=== PATIENT | female | born 1975 | race Caucasian/White ===

== ENCOUNTER 2017-03-22 11:17 | Emergency (ER) | payer OTHER ==
[~2017-03-22] VITALS: Ht 165.1 cm; Wt 65.9 kg
[2017-03-22 11:32] VITALS: BP 142/88; PULSE 72; RESP 15; O2SAT 100
--- NOTE | 2017-03-22 12:19 | ED.REPORT ---
HPI-Rash / Abscess Date of Service Mar 22, 2017 ED Provider: Danny Dorantes PA-C Lavell is a 42-year-old female with a history of methamphetamine and heroin abuse presented with a chief complaint of scalp lesions. She reports several month history of irritated areas of her scalp. She states that earlier this week a roughly 1 cm which she believes was an egg them are from her scalp, which she states was "full of worms." She reports cleaning the area very thoroughly in the shower, applying ointments such as antibiotic ointment and antifungal ointment and an attempt at treatment. She also complains of sores on her legs, which she denies picking at but admits "itching." She is further concerned she possibly has ebola virus. She states she was in [facility] roughly 7 months ago. Denies fever, shaking chills, malaise, abdominal pain, vomiting, diarrhea, melena, hematochezia. Admits to ongoing polysubstance abuse including methamphetamine and heroin. Nursing Notes Stated Complaint: GENERAL Chief Complaint: Skin Rash/Abscess Nursing Notes Reviewed: Yes Allergies: Coded Allergies: latex (Verified Allergy, Severe, Hives, 03/22/17) lorazepam (Verified Allergy, Intermediate, Anxious, 03/22/17) Penicillins (Verified Allergy, Unknown, VOMITTING, 03/22/17) Scheduled Mupirocin (Mupirocin Ointment) 22 Gm Oint...g. 1 APPLIC TOP TID General Time Seen by MD: 11:59 Chief Complaint Sore Past Medical History Past Medical History Notes: latex allergy Past Medical History Opiate and meth dependence multiple pick sores 06/27/2016 Past Surgical History surgical scar on her neck from back surgery. thyroid removal Reports: Smoking History Current Every Day Smoker Social History heroin Alcohol Use: "Social" Drug Use: Meth, Other Other Social History: Poor social support Ambulatory Status Independent Review of Systems Review of Systems Note: Negative unless stated otherwise in history of present illness Physical Exam General: Well appearing, well developed, well nourished, no acute distress. Head: Atraumatic, normocephalic. Eyes: No scleral icterus or injection. No discharge. Vision grossly intact. ENT: Voice clear, hearing grossly intact. Respiratory: Regular rate and rhythm. Breath sounds present, clear to auscultation and equal bilaterally. No respiratory distress. No increased work of breathing, speaks in complete sentences. Cardiovascular: Regular rate and rhythm, without murmur, gallop or rub. No pedal edema. Gastrointestinal: Abdomen flat and non-tender without guarding or rebound. Bowel sounds normoactive. Skin: 2 areas of excoriation noted on scalp surrounded by hair that been cut by the patient. No evidence of parasites. Multiple areas of excoriation over the forearms and lower legs. No indications of cellulitis such as redness, swelling , heat. Otherwise warm and dry Neurological: Grossly nonfocal. Psychological: Alert and oriented. Speech appropriate, linear and logical. Behavior appropriate. Initial Vital Signs Vital Signs (First) Date Time Temp Pulse Resp B/P Pulse Ox O2 Delivery O2 Flow Rate FiO2 03/22/17 11:32 36.9 72 15 142/88 100 Room Air Normal Re-Eval/Medical Decision Med Decision/Clinical Course 42-year-old female history of methamphetamine and heroin abuse as well as skin picking disorder per old records presents to the emergency department with chief complaint of sores on her scalp. She is concerned about parasites and possibly ebola virus. She reports traveling traveling to [place] in the last 7 months but denies fever, shaking chills, malaise, abdominal pain, vomiting, melena, hematochezia, diarrhea. She reports a months-long history of sores on her scalp and states that a "egg" emerged from her scalp approximately 1 week ago that was "full of worms." Also reports sores on her legs despite her denial that she picks at them. Admits to "itching". Admits continued methamphetamine and heroin abuse. Physical examination reveals there is excoriation and scalp forearms and lower legs. No evidence of cellulitis or parasites. His examination is otherwise benign with normal vital signs, specifically she is afebrile. I believe these are excoriations, most likely caused by her methamphetamine use. I have low concern for parasitic infection, ebola virus, cellulitis. Prescribed Bactrim to prevent superinfection and advised covering the sores to prevent absent-minded picking. I also advised cessation of drug use. Provided primary care follow-up referral. Provide emergent return precautions. Patient verbalized understanding of and consent to the plan. Discharge & Departure Impression: Primary Impression: Excoriation Additional Impression: Substance abuse Disposition: Home Discharge Condition All VS Reviewed: Yes Condition: Stable Additional Instructions: Evaluation for skin issues in the emergency department consists of interview and physical examination both which are reassuring that she do not have a parasitic infection at this time. They are also reassuring that you do not have Ebola at this time. I will write a prescription for Bactroban, an antibiotic ointment to place on the irritated areas of your scalp and legs. I recommend putting bandages over the spots that you do not absent-mindedly pick at or scratch them. It is extremely important that you stop using methamphetamine and heroin and other drugs. These are extremely detrimental to your health. I provided with a referral for a primary care provider. Please contact them if your symptoms continue despite treatment. Return to emergency department for new or worsening symptoms including high fever, vomiting, bloody stool. Referrals: [facility] EDSupervising Provider for APC: Alexi Sanchez MD copies to: [facility] Danny Dorantes PA-C Mar 22, 2017 12:19
[2017-03-22] MEDS ORDERED: MUPI22OI2 TOP (12:20)
== END 2017-03-22 12:15 | disposition home or self-care (01) ==
LOC: SED 11:23
DX: F42.4 Excoriation (skin-picking) disorder (principal); F11.20 Opioid dependence, uncomplicated; F15.20 Other stimulant dependence, uncomplicated; F17.200 Nicotine dependence, unspecified, uncomplicated; Z88.8 Allergy status to other drugs, medicaments and biological substances; Z88.0 Allergy status to penicillin